=== PATIENT | male | born 1975 | race Caucasian/White ===

== ENCOUNTER 2023-08-18 02:32 | Emergency (ER) | payer OTHER, SELFPAY ==
[2023-08-18 02:37] VITALS: BP 127/88
[2023-08-18 04:27] LABS: % Basophils 0.2 % (0-2); % Eosinophils 0.3 % (0-6); % Immature Granulocytes 0.5 % (0-0.5); % Lymphocytes 4.6 % (20.5-51.1); % Monocytes 4.1 % (1.7-9.3); % Neutrophils 90.3 % (42.2-75.2); Absolute Lymphocytes 0.4 10^3/uL (1.2-3.4); Absolute Monocytes 0.4 10^3/uL (0.1-0.6); Hematocrit 44.5 % (39.0-52.0); Hemoglobin 15.2 g/dL (13.0-18.0); Mean Corp Hgb Conc. 34.2 g/dL (33.0-37.0); Mean Corpuscular Hgb 29.3 pg (27.0-31.0); Mean Corpuscular Volume 85.9 fL (80.0-94.0); Mean Platelet Volume 10.9 fL (7.4-10.4); Nucleated Red Blood Cells % 0 % (-); Platelet Count 159 10^3/uL (130-400); Red Blood Cell Count 5.18 10^6/uL (4.70-6.10); Red Cell Dist. Width 13.2 % (11.5-14.5); White Blood Cell Count 8.8 10^3/uL (4.8-10.8)
[2023-08-18 04:41] LABS: ALT (SGPT) 27 U/L (0-50); AST (SGOT) 28 U/L (17-59); Albumin 5.4 g/dl (3.5-5.0); Alkaline Phosphatase 54 U/L (38-126); Blood Urea Nitrogen 25 mg/dl (9-20); Calcium 10.2 mg/dl (8.4-10.2); Carbon Dioxide 25 mmol/L (22-30); Chloride 104 mmol/L (98-107); Glucose 119 mg/dl (70-99); Lipase 69 U/L (23-300); Potassium 4.7 mmol/L (3.5-5.1); Sodium 139 mmol/L (135-145); Total Bilirubin 0.9 mg/dl (0.2-1.3); Total Protein 8.2 g/dl (6.3-8.2); eGFR > 60.00
[2023-08-18 04:52] LABS: Troponin I < 0.012 ng/ml
[2023-08-18] MEDS: NSS 1000 IV ×2 (07:17→07:18)
[2023-08-18] MEDS: ZOFRAN 4 MG IV (07:22)
[2023-08-18] MEDS: PROTONIX IV 40 MG IV (07:22)
--- NOTE | 2023-08-18 09:09 | ED.GENMED ---
History of Present Illness
General
Chief Complaint: Abdominal Symptoms
Source: patient
Exam Limitations: none
Time Seen by Provider: 08/18/23 06:58
Nursing documentation reviewed up to this point in time: agreed with
Travel History
Have you had any contact with someone who has COVID-19?: No
Do you have any symptoms of coronavirus? Fever > 100 degrees, chills, cough, shortness of breath, sore throat, loss of taste or smell, muscle aches, or headache?: No
History of Present Illness
History of Present Illness:
Patient presents to ED secondary to persistent nausea, vomiting, and nonbloody diarrhea, on approximately 3 hours after having sushi dinner, with his family. Patient's also started to have similar symptoms but not as severe. In addition,
patient had returned last night from [facility], and was given meal shortly prior to landing. As such, patient is not sure if he is having symptoms secondary to dinner at a restaurant or what he may have had consumed on the plane. Denies fever or
chills. Denies abdominal pain. After multiple vomiting episodes, patient started to feel lightheaded.
Review of Systems
Review of Systems
Allergies reviewed?: Yes
All Other Systems: ROS reviewed and negative except as documented in HPI and ROS
Constitutional: Reports no symptoms
EENT: Reports no symptoms
Respiratory: Reports no symptoms
Cardiac: Reports no symptoms
ABD/GI: Reports nausea, vomiting and diarrhea; Denies abdominal pain
: Reports no symptoms
Musculoskeletal: Reports no symptoms
Skin: Reports no symptoms
Neurological: Reports dizzy
Phy Exam
Physical Exam
Physical Exam:
Physical Exam
General: mild painful distress, not acutely ill. afebrile.
Head: nc/at. eomi
Neck: supple. normal range of motion.
Abd: soft and nontender. no distention.
Neuro: alert and oriented. no focal neurological deficits
Skin: no rash
Psychiatric: well kept. interactive and cooperative
Extremities: no edema. no calf tenderness.
Course
Orders/Labs/Results
Orders:
Orders
08/18/23 02:45
EKG [Electrocardiogram (*1)] Urgent
Reason for Study: Abdominal Pain
08/18/23 02:46
EKG- Treatment ONCE
08/18/23 03:51
IV Insert/Care/Rem.- Treatment PRN
08/18/23 04:12
Complete Blood Count/With Diff Urgent
Comprehensive Metabolic Panel Urgent
Lipase Urgent
Troponin I Urgent
08/18/23 07:09
0.9% Sodium Chloride 1000 ml [Nss] 1,000 ml IV BOLUS
Ondansetron Injectable [Zofran] 4 mg IV NOW STA
Pantoprazole [Protonix IV] 40 mg IV NOW STA
08/18/23 07:10
0.9% Sodium Chloride 1000 ml [Nss] 1,000 ml IV BOLUS
08/18/23 10:23
Norovirus by PCR Routine
[facility] Source: Feces/Stool
Specimen Description:
Date Specimen was Collected: 08/18/23
Time Specimen was Collected: 10:20
Stool Culture Urgent
[facility] Source: Feces/Stool
Specimen Description:
Date Specimen was Collected: 08/18/23
Time Specimen was Collected: 10:20
Abnormal Lab Results
08/18/23
04:12
MPV 10.9 H fL
(7.4-10.4)
Absolute Neuts (auto) 8.0 H 10^3/uL
(1.4-6.5)
Absolute Lymphs (auto) 0.4 L 10^3/uL
(1.2-3.4)
Neutrophils % 90.3 H %
(42.2-75.2)
Lymphocytes % 4.6 L %
(20.5-51.1)
BUN 25 H mg/dl
(9-20)
Glucose 119 H mg/dl
(70-99)
Albumin 5.4 H g/dl
(3.5-5.0)
08/18/23 04:12
08/18/23 04:12
Vital Signs
Initial and Last Documented VS:
Initial Vital Signs
Temp Pulse Resp BP Pulse Ox
98.1 F 128 16 127/88 95
08/18/23 02:37 08/18/23 02:37 08/18/23 02:37 08/18/23 02:37 08/18/23 02:37
Last Documented Vital Signs
Temp Pulse Resp BP Pulse Ox
98.1 F 75 16 142/92 95
08/18/23 02:37 08/18/23 10:00 08/18/23 09:44 08/18/23 10:00 08/18/23 10:00
MDM/Problems Addressed
MDM/Problems Addressed:
History and exam consistent with likely food reaction versus viral enteritis. Blood work within normal limits with stable vital signs. Patient will be hydrated and reassessed.
After hydration, patient reports improvement symptoms. Patient without any further vomiting episodes or diarrhea during observation. Patient is able to ambulate independently with steady gait prior to discharge. Patient will be treated
symptomatically with Zofran ODT, along with continual hydration at home, as well as PCP follow-up.
Stool cx and norovirus pending at time of discharge.
*Critical Care Note
Total Time (30-74mins, 75-104mins- exclusive of procedures): Not Applicable
ED Attending Note
-
Portions of this chart may have been created with voice recognition software.� Occasional wrong word or��sound alike� substitutions may have occurred due to the inherent limitations of voice recognition software.
Discharge Plan
Departure
Patient Disposition: Home (Routine Discharge)
Date of Disposition: 08/18/23
Time of Disposition: 09:56
Patient with high blood pressure during this ER visit?: Yes
Discharge Problem:
Gastroenteritis
Instructions: Viral Gastroenteritis, Adult (DC)
Prescriptions:
New
ondansetron 4 mg Tablet,Disintegrating
4 mg PO TIDPRN PRN (Reason: nausea/vomiting) Qty: 12 0RF
Referrals:
UNKNOWN - PT DOES,NOT KNOW [Family Provider] -
Activity Restrictions/Additional Instructions:
As discussed, please follow-up with your primary care physician for reevaluation, including potential stool study as an outpatient. Your prescription has been sent electronically to [facility] pharmacy in [place].
Interventions
Interventions:
*Risk Screen - Suicide Last Done: 08/18/23 02:37
*General Assessment Last Done: 08/18/23 02:37
*Neglect/Abuse Screening Last Done: 08/18/23 02:37
ED- Fall Risk Assessment Last Done: 08/18/23 02:37
*ED COVID-19 Vaccine History Last Done: 08/18/23 02:37
*Nursing Disposition Last Done: 08/18/23 10:30
OQ-[id number] Assessment Last Done: 08/18/23 07:38
Discharge Date and Time
Discharge Date/Time: 08/18/23 10:30
Print Language: CHINESE
[2023-08-18 09:44] VITALS: BP 99/66
[2023-08-18 10:00] VITALS: BP 142/92
== END 2023-08-18 10:30 | disposition home or self-care (01) ==
LOC: EMR 02:32
PROVIDERS: Student in an Organized Health Care Education/Training Program; EMERGENCY PHYSICIAN Emergency Medicine
DX: K52.9 Noninfective gastroenteritis and colitis, unspecified (principal)
CPT/HCPCS: 99284; 96374; 96375; 96361; 80053; 83690; 84484; 85025; 87045; 87046; 87427; 87798; 93005